=== PATIENT | female | born 1990 | race Caucasian/White ===

== ENCOUNTER 2017-06-19 18:30 | Emergency (ER) | payer BC ==
[~2017-06-19] VITALS: Ht 170.2 cm; Wt 68.0 kg
[~2017-06-19 18:30] MED LIST: AMOXICILLIN500 M1 PO; NORCO 5-325 TA1 EACH PO
[2017-06-19 18:59] LABS: URINE BLOOD 3+ (Negative); URINE CLARITY CLEAR; URINE COLOR YELLOW; URINE GLUCOSE-RANDOM NEGATIVE (Negative); URINE KETONES 2+ (Negative); URINE LEUKOCYTES-REFLEX NEGATIVE (Negative); URINE NITRITE-REFLEX NEGATIVE (Negative); URINE PROTEIN TRACE (Negative); URINE SPECIFIC GRAVITY >= 1.030 (1.005-1.030)
[2017-06-19 19:02] LABS: URINE BILIRUBIN 1+ (Negative)
[2017-06-19 19:03] LABS: ICTOTEST (BILI CONFIRMATORY) Negative (Negative)
[2017-06-19 19:12] LABS: CASTS None Seen /LPF (None Seen); CRYSTALS None Seen /LPF (None Seen); MUCUS 4-6 Moderate strn/LPF (None Seen); SQUAMOUS >10 Many /LPF (0-3)
[2017-06-19 19:14] LABS: BACTERIA-REFLEX 1-9 Few /HPF (None Seen); URINE RBC 3-10 Few /HPF (0-2); URINE WBC-REFLEX 0-5 Rare /HPF (0-5)
[2017-06-19] MEDS ORDERED: AMOXICILLIN 50500 MG PO (20:05)
[2017-06-19] MEDS ORDERED: ZPAK PO (20:06)
[2017-06-19 20:16] VITALS: BP 111/76
== END 2017-06-19 20:10 | disposition home or self-care (01) ==
LOC: M.ERS 18:30
PROVIDERS: Nurse Practitioner Family
DX: J06.9 Acute upper respiratory infection, unspecified (principal); R31.9 Hematuria, unspecified